=== PATIENT | female | born 1950 | race American Indian/Alaskan Native ===

== ENCOUNTER 2018-07-07 10:01 | Outpatient (CLI) | payer OTHER ==
--- NOTE | 2018-07-07 11:14 | Mammography Report ---
BILATERAL DIGITAL DIAGNOSTIC MAMMOGRAM with CAD and DIGITAL BREAST TOMOSYNTHESIS (DBT): 07/07/18 10:01:00 CLINICAL: 6 month followup for bilateral parenchymal asymmetries. COMPARISON:12/25/17 mammogram and 01/07/19 bilateral breast ultrasound. FINDINGS: The breasts are heterogeneously dense, which may obscure small masses.Previously identified bilateral parenchymal asymmetries are less prominent. No mass, architectural distortion or suspicious calcifications. IMPRESSION: No mammographic evidence of malignancy. BI-RADS CATEGORY: 2 - - Benign RECOMMENDATION: Return to routine mammographic screening. COMMENT: Patient follow-up letters are generated by our [employer] application.
== END 2018-07-07 10:02 | disposition home or self-care (01) ==
LOC: SPVWC 10:01
PROVIDERS: ATTEND Internal Medicine
DX: R92.8 Other abnormal and inconclusive findings on diagnostic imaging of breast (principal)
CPT/HCPCS: 77066; G0279